=== PATIENT | male | born 1960 | race Caucasian/White ===

== ENCOUNTER 2016-08-24 00:43 | Emergency (ER) | payer BC ==
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
[2016-08-24 00:55] VITALS: RESP 16; TEMP 98.1
[2016-08-24 01:52] VITALS: BP 122/70; PULSE 88; O2SAT 98
== END 2016-08-24 01:30 | disposition home or self-care (01) ==
LOC: EDUNIT# → EEVIPCON 00:43
PROC: 0HQ0XZZ Repair Scalp Skin, External Approach (ICD-10-PCS; principal; 2016-08-24)
DX: S01.01XA Laceration without foreign body of scalp, initial encounter (principal); Y04.0XXA Assault by unarmed brawl or fight, initial encounter